=== PATIENT | female | born 1970 | race Caucasian/White ===

== ENCOUNTER 2017-04-23 06:22 | Emergency (ER) | payer OTHER ==
[~2017-04-23] VITALS: Ht 157.5 cm; Wt 66.4 kg
[2017-04-23 06:23] VITALS: BP 127/69
[2017-04-23] MEDS ORDERED: LEVO75TA4 (06:32)
[2017-04-23] MEDS ORDERED: PANT40TA2 (06:32)
[2017-04-23] MEDS ORDERED: TRAM50TA2 (06:32)
[2017-04-23] MEDS ORDERED: HYDR200T3 (06:32)
[2017-04-23] MEDS ORDERED: HUMI40KI2 (06:32)
[2017-04-23] MEDS ORDERED: PROZ20CA11 PO (06:33)
== END 2017-04-23 07:30 | disposition home or self-care (01) ==
LOC: M ED 06:22
DX: J02.0 Streptococcal pharyngitis (principal); E03.9 Hypothyroidism, unspecified; Z79.899 Other long term (current) drug therapy

== ENCOUNTER 2021-08-09 13:37 | Outpatient (CLI) | payer OTHER ==
[~2021-08-09] VITALS: Ht 157.5 cm; Wt 70.0 kg
[~2021-08-09 13:37] MED LIST: ALBUTEROL SULFATE 2.5 MG/0.5 ML INH NEB SOLN INH PRN; CYAN100050 PO; D-20TAB PO; EPINEPHrine INJ 1 MG/ML 1ML AMP IM PRN; HUMI40KI2; HYDR200T3 PO; IRON SUCROSE 200 MG in NS 100 ML OVER 1 HR IV ONE; LEVO75TA4 PO; PANT40TA29 PO; PROZ20CA11 PO; TRAM50TA2 PO; TRAZ-252 PO; VITA1CHW8 PO; diphenhydrAMINE 50MG/ML VIAL (J1200) IV PRN; methylPREDNISolone 125MG 2ML VIAL IV PRN
[2021-08-09 14:16] VITALS: BP 134/63
[2021-08-09 15:00] VITALS: BP 124/68
[2021-08-09 15:30] VITALS: BP 127/60
== END 2021-08-09 15:30 | disposition home or self-care (01) ==
LOC: M INFU 13:37
PROVIDERS: ATTEND Internal Medicine Hematology
DX: D64.9 Anemia, unspecified (principal)
CPT/HCPCS: 96365; J1756

== ENCOUNTER 2021-09-06 13:51 | Outpatient (CLI) | payer OTHER ==
[~2021-09-06] VITALS: Ht 157.5 cm; Wt 70.0 kg
[~2021-09-06 13:51] MED LIST changes: +ACETAMINOPHEN TAB 650MG DOSE (2X325MG) PO ONE; +NS 1,000 ML IV SCH
[2021-09-06 14:00] VITALS: BP 118/62
[2021-09-06 15:38] VITALS: BP 125/76
== END 2021-09-06 15:40 | disposition home or self-care (01) ==
LOC: M INFU 13:51
PROVIDERS: ATTEND Internal Medicine Hematology
DX: D64.9 Anemia, unspecified (principal)
CPT/HCPCS: 96365; J1756

== ENCOUNTER 2021-09-20 13:25 | Outpatient (CLI) | payer OTHER ==
[~2021-09-20] VITALS: Ht 157.5 cm; Wt 70.0 kg
[~2021-09-20 13:25] MED LIST changes: -ACETAMINOPHEN TAB 650MG DOSE (2X325MG) PO ONE; -IRON SUCROSE 200 MG in NS 100 ML OVER 1 HR IV ONE; -NS 1,000 ML IV SCH
[2021-09-20 13:30] VITALS: BP 127/6
[2021-09-20] MEDS ORDERED: IRON SUCROSE 200 MG in NS 100 ML OVER 1 HR IV ONE (13:30)
[2021-09-20 15:13] VITALS: BP 100/67
== END 2021-09-20 15:15 | disposition home or self-care (01) ==
LOC: M INFU 13:25
PROVIDERS: ATTEND Internal Medicine Hematology
DX: D64.9 Anemia, unspecified (principal)
CPT/HCPCS: 96365; J1756

== ENCOUNTER 2022-02-16 17:04 | Emergency (ER) | payer OTHER ==
[~2022-02-16] VITALS: Ht 157.5 cm; Wt 63.7 kg
[~2022-02-16 17:04] MED LIST changes: -ALBUTEROL SULFATE 2.5 MG/0.5 ML INH NEB SOLN INH PRN; -EPINEPHrine INJ 1 MG/ML 1ML AMP IM PRN; -diphenhydrAMINE 50MG/ML VIAL (J1200) IV PRN; -methylPREDNISolone 125MG 2ML VIAL IV PRN
[2022-02-16 18:40] VITALS: BP 121/82
== END 2022-02-16 18:45 | disposition home or self-care (01) ==
LOC: M ED 17:04
DX: S60.221A Contusion of right hand, initial encounter (principal); W23.0XXA Caught, crushed, jammed, or pinched between moving objects, initial encounter; K21.9 Gastro-esophageal reflux disease without esophagitis; M06.9 Rheumatoid arthritis, unspecified; Z98.84 Bariatric surgery status; Y92.9 Unspecified place or not applicable; Y93.9 Activity, unspecified; Y99.0 Civilian activity done for income or pay

== ENCOUNTER 2025-03-16 10:56 | Outpatient (CLI) | payer OTHER ==
[~2025-03-16] VITALS: Ht 157.5 cm; Wt 70.5 kg
[~2025-03-16 10:56] MED LIST changes: +ALBUTEROL SULFATE 2.5 MG/0.5 ML INH CONCENTRATE NEB SOLN INH PRN; +CYAN-1 PO; -CYAN100050 PO; +DULO1CAP6; +EPINEPHrine INJ 1 MG/ML 1ML AMP IM PRN; +ESSETAB4 PO; +ETAN50PE; +GABA-1172; -HYDR200T3 PO; +HYDR200T46 PO; +HYDR50TA70 PO; +MELA10CA6 PO; +ONDA-284; +PRAZ1CAP PO; +PRED10TA2; -PROZ20CA11 PO; +PROZ20CA12 PO; +SIME80CH6 PO; +diphenhydrAMINE 50 MG/ML VIAL IV PRN
[2025-03-16] MEDS: ACETAMINOPHEN 650MG PO PRIOR TO INFUSION PO ONE (11:37)
[2025-03-16] MEDS: dexameTHASONE 20 MG IV PRIOR TO INFUSION IV ONE (11:38)
[2025-03-16] MEDS: diphenhydrAMINE 25MG PO PRIOR TO INFUSION PO ONE (11:38)
[2025-03-16] MEDS: IRON SUCROSE 300 MG in NS 250 ML IV ONE (12:01)
== END 2025-03-16 13:39 | disposition home or self-care (01) ==
LOC: M INFU 10:56
PROVIDERS: ATTEND Internal Medicine Medical Oncology
DX: D50.9 Iron deficiency anemia, unspecified (principal); Z98.84 Bariatric surgery status
CPT/HCPCS: 96365; J1756

== ENCOUNTER 2025-03-23 11:06 | Outpatient (CLI) | payer OTHER ==
[~2025-03-23] VITALS: Ht 157.5 cm; Wt 70.5 kg
[2025-03-23 11:35] VITALS: BP 119/68; O2SAT 98
[2025-03-23] MEDS: ACETAMINOPHEN 650 MG PO ONE (12:00)
[2025-03-23] MEDS: IRON SUCROSE 300 MG in NS 250 ML IV ONE (12:02)
[2025-03-23 13:38] VITALS: BP 132/72; O2SAT 99
== END 2025-03-23 13:40 ==
LOC: M INFU 11:06
PROVIDERS: ATTEND Internal Medicine Medical Oncology
DX: D50.9 Iron deficiency anemia, unspecified (principal); Z98.84 Bariatric surgery status
CPT/HCPCS: 96365; 96366; J1756

== ENCOUNTER 2025-03-30 11:08 | Outpatient (CLI) | payer OTHER ==
[~2025-03-30] VITALS: Ht 160 cm; Wt 71.4 kg
[2025-03-30 11:46] VITALS: BP 117/78; O2SAT 99
[2025-03-30] MEDS: dexameTHASONE 20 MG IV PRIOR TO INFUSION IV ONE (12:29)
[2025-03-30] MEDS: ACETAMINOPHEN 650MG PO PRIOR TO INFUSION PO ONE (12:29)
[2025-03-30] MEDS: diphenhydrAMINE 25MG PO PRIOR TO INFUSION PO ONE (12:29)
[2025-03-30] MEDS: IRON SUCROSE 300 MG in NS 250 ML IV ONE (12:30)
[2025-03-30 14:15] VITALS: BP 122/79; O2SAT 98
== END 2025-03-30 14:15 | disposition home or self-care (01) ==
LOC: M INFU 11:08
PROVIDERS: ATTEND Internal Medicine Medical Oncology
DX: D50.9 Iron deficiency anemia, unspecified (principal); Z98.84 Bariatric surgery status
CPT/HCPCS: 96365; 96366; J1756

== ENCOUNTER 2025-04-06 11:04 | Outpatient (CLI) | payer OTHER ==
[~2025-04-06] VITALS: Ht 157.5 cm; Wt 70.0 kg
[2025-04-06] MEDS: IRON SUCROSE 300 MG in NS 250 ML IV ONE (12:05)
[2025-04-06] MEDS: diphenhydrAMINE 25MG PO PRIOR TO INFUSION PO ONE (12:06)
[2025-04-06] MEDS: ACETAMINOPHEN 650MG PO PRIOR TO INFUSION PO ONE (12:07)
== END 2025-04-06 13:45 ==
LOC: M INFU 11:04
PROVIDERS: ATTEND Internal Medicine Medical Oncology
DX: D50.9 Iron deficiency anemia, unspecified (principal); Z98.84 Bariatric surgery status
CPT/HCPCS: 96365; 96366; J1756